=== PATIENT | female | born 1985 | race Caucasian/White ===

== ENCOUNTER 2016-05-02 20:09 | Emergency (ER) | payer MEDICAID ==
--- NOTE | 2016-05-02 21:48 | Emergency Department Record ---
History of Present Illness - General Chief complaint: ENT Stated complaint: SORE THROAT Time Seen by Provider: 05/02/16 21:48 Source: Patient Mode of Arrival: Ambulatory Limitations: No limitations - History of Present Illness Initial comments: The patient is here due to a ST for 2 days. Her ears are also mildly painful and she does have a slight dry cough. The patient has a hx of frequent Strep supposedly. MD complaint: Sore throat Onset/Timin -: Days(s) Location: R ear, L ear, Throat Improves with: None Worsens with: Eating, Swallowing Context- Ear: Recent illness Associated Symptoms: Cough, Pain with swallowing, Sore throat - Related Data Home Medications Medication Instructions Recorded Confirmed Last Taken Desvenlafaxine Succinate [Pristiq] 100 mg PO QHS 05/02/16 05/02/16 05/01/16 Pnv95/Ferrous Fumarate/FA 1 each PO 05/02/16 05/01/16 [ Caplet] Previous Rx's Medication Instructions Recorded Prednisone [Prednisone 20Mg] 40 mg PO DAILY #6 tab 05/02/16 Allergies Allergy/AdvReac Type Severity Reaction Status Date / Time Penicillins AdvReac VOMITING Verified 05/02/16 21:32 Travel Screening - Travel/Exposure Within Last 30 Days Have you traveled within the last 30 days?: No - Travel/Exposure Within Last Year Have you traveled outside the [place] 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 Denies: Chills, Fever Eyes: Denies: Eye discharge, Eye pain ENT: Reports: Congestion, Ear pain, Throat pain Respiratory: Reports: Cough. Denies: Dyspnea Past Medical History - SOCIAL HISTORY Smoking Status: Never smoker Alcohol Use: Rare Drug Use: None - RESPIRATORY Hx Respiratory Disorders: No - CARDIOVASCULAR Hx Cardio Disorders: No - NEURO Hx Neuro Disorders: No - GI Hx GI Disorders: Yes Comment:: "something wrong with my stomach but I don't know what" - Hx Genitourinary Disorders: No - ENDOCRINE Hx Endocrine Disorders: No - MUSCULOSKELETAL Hx Musculoskeletal Disorders: No - PSYCH Hx Psych Problems: No Hx Depression: Yes Comment:: Recent hospitilization d/t depression - HEMATOLOGY/ONCOLOGY Hx Hematology/Oncology Disorders: No Family Medical History Any Significant Family History?: Yes Hx Diabetes: Father, Mother, Grandparents Physical Exam - General General Appearance: Alert, Oriented x3, Cooperative, No acute distress - Head Head exam: Atraumatic, Normocephalic, Normal inspection - Eye Eye exam: Normal appearance, PERRL - ENT ENT exam: Normal exam, Mucous membranes moist, Normal external ear exam, TM's normal bilaterally. negative: Normal orophraynx Throat exam: Tonsillar erythema. negative: Normal inspection, Tonsillomegaly, Tonsillar exudate, R peritonsillar mass, L peritonsillar mass - Neck Neck exam: Normal inspection, Full ROM. negative: Lymphadenopathy, Meningismus , Tenderness - Respiratory Respiratory exam: Normal lung sounds bilaterally. negative: Respiratory distress - Cardiovascular Cardiovascular Exam: Regular rate, Normal rhythm, Normal heart sounds Course Vital Signs 05/02/16 21:35 Temperature 98.6 F Pulse Rate 99 H Respiratory 16 Rate Blood Pressure 124/72 Pulse Ox 99 Disposition Disposition: Discharge Clinical Impression: Upper respiratory infection, acute Disposition: Home, Self-Care Condition: (1) Good Instructions: Viral Syndrome (ED) Additional Instructions: Please use Tylenol or Motrin for pain. Continue the Prednisone tomorrow. Please see your PCP if not better in 2 days. Prescriptions: Prednisone [Prednisone 20Mg] 40 mg PO DAILY #6 tab Forms: Patient Portal Access Time of Disposition: 22:08
[2016-05-02] MEDS ORDERED: PREDNISONE 20 MG TAB PO ONE (22:05)
== END 2016-05-02 22:13 | disposition home or self-care (01) ==
LOC: ER 20:09
DX: J06.9 Acute upper respiratory infection, unspecified (principal)
CPT/HCPCS: 87880; J7512; 99282